=== PATIENT | male | born 1960 | race Caucasian/White ===

== ENCOUNTER 2024-02-13 00:24 | Emergency (ER) | payer SELFPAY ==
[~2024-02-13] VITALS: Ht 180.3 cm; Wt 104.0 kg
[2024-02-13 00:33] VITALS: O2SAT 97
[2024-02-13] MEDS ORDERED: KETOROLAC 30MG/ML VIAL IM ONE (01:15)
[2024-02-13] MEDS ORDERED: ONDANSETRON 4MG ODT PO ONE (01:15)
[2024-02-13 01:41] LABS: BASOPHILS % 0.6 % (0.0-2.0); EOSINOPHILS % 0.1 % (0.0-5.0); HEMATOCRIT. 51.8 % (42.0-52.0); HEMOGLOBIN. 17.5 g/dL (14.0-18.0); LYMPHOCYTES % 14.5 % (20.0-50.0); MEAN CORPUSCULAR HEMOGLOBIN 29.7 pg (28.0-32.0); MEAN CORPUSCULAR HGB CONC 33.8 g/dL (31.0-37.0); MEAN CORPUSCULAR VOLUME 88.1 fL (80.0-94.0); MEAN PLATELET VOLUME 6.9 fl (7.4-10.4); MONOCYTES % 4.9 % (2.0-8.0); NEUTROPHILS % 79.9 % (40.0-76.0); PLATELET 339 x1000/uL (130-400); RED BLOOD CELL COUNT 5.88 mill/uL (4.7-6.1); RED CELL DISTRIBUTION WIDTH 15.5 % (11.6-14.6)
[2024-02-13 01:46] LABS: CHLORIDE 102 mEq/L (98-107); POTASSIUM 3.7 mEq/L (3.5-5.1); SODIUM 139 mEq/L (136-145)
[2024-02-13 01:47] LABS: CALCIUM 9.9 mg/dL (8.7-10.4); CARBON DIOXIDE 29 mEq/L (21-32)
[2024-02-13 01:52] LABS: DIFFERENTIAL COMMENT 1; GLUCOSE 126 mg/dL (70-105); UREA NITROGEN BLOOD 12 mg/dL (9-23)
[2024-02-13 01:54] LABS: ALANINE AMINOTRANSFERASE 31 IU/L (10-49); ASPARTATE AMINOTRANSFERASE 26 IU/L (<34); BILIRUBIN DIRECT 0.2 mg/dL (<=3.0); BILIRUBIN TOTAL 0.7 mg/dL (0.1-1.0); PROTEIN TOTAL 8.6 g/dL (6.0-8.3)
[2024-02-13 01:59] LABS: TROPONIN I HIGH SENSITIVITY < 4 ng/L (3.0-53)
[2024-02-13] MEDS: ONDANSETRON 4MG ODT PO NR (02:11)
[2024-02-13] MEDS: KETOROLAC 30MG/ML VIAL IM NR (02:12)
[2024-02-13 02:24] LABS: ALBUMIN 5.1 g/dL (3.2-4.8)
[2024-02-13] MEDS ORDERED: ONDA-239 PO (02:36)
[2024-02-13 02:45] VITALS: BP 123/77; PULSE 72; RESP 20; TEMP 36.66960; O2SAT 97
== END 2024-02-13 02:45 | disposition home or self-care (01) ==
LOC: ER 00:24
DX: R10.84 Generalized abdominal pain (principal); R11.2 Nausea with vomiting, unspecified; Z90.49 Acquired absence of other specified parts of digestive tract
CPT/HCPCS: 99285; 74176; 71045; 80076; 80048; 83690; 85025; 84484; 36415; 93005; 96372; Q0162; J1885